=== PATIENT | male | born 1980 | race Hispanic/Latino ===

== ENCOUNTER 2020-10-02 06:54 | Emergency (ER) | payer OTHER ==
[2020-10-02] MEDS ORDERED: Cyclobenzaprine 10 MG TAB ONE (07:25)
[2020-10-02] MEDS ORDERED: Ketorolac Tromethamine 30 MG/ML VIAL ONE (07:25)
[2020-10-02] MEDS ORDERED: Acetaminophen 500 MG TAB ONE (07:25)
== END 2020-10-02 07:58 | disposition home or self-care (01) ==
LOC: ERS 06:54
DX: S39.012A Strain of muscle, fascia and tendon of lower back, initial encounter (principal); M62.830 Muscle spasm of back
CPT/HCPCS: 96372; 99283; J1885